=== PATIENT | male | born 1965 ===

== ENCOUNTER 2020-12-29 22:44 | Emergency (ER) | payer OTHER ==
[2020-12-29 22:49] VITALS: BP 134/90; PULSE 90; RESP 19; TEMP 98.3
--- NOTE | 2020-12-30 00:31 | ED ---
Recheck HPI - General Chief Complaint: Recheck/Abnormal Lab/Rx Stated Complaint: Covid Test Time Seen by Provider: 12/29/20 23:28 Source: patient Mode of arrival: ambulatory - History of Present Illness Initial Comments: 55-year-old male patient presents to the emergency department today requesting COVID-19 testing in order to [place] the border [place]. Patient denies any known exposures or any current symptoms. Denies need for any further testing. - Related Data Allergies Allergy/AdvReac Type Severity Reaction Status Date / Time No Known Allergies Allergy Verified 12/29/20 22:49 Review of Systems ROS Statement: Those systems with pertinent positive or pertinent negative responses have been documented in the HPI. ROS Other: All systems not noted in ROS Statement are negative. Past Medical History Past Medical History: No Reported History History of Any Multi-Drug Resistant Organisms: None Reported Past Surgical History: No Surgical Hx Reported Past Psychological History: No Psychological Hx Reported Smoking Status: Never smoker Past Alcohol Use History: None Reported Past Drug Use History: None Reported General Exam General appearance: alert, in no apparent distress Neurological exam: Present: alert, oriented X3, CN II-XII intact Psychiatric exam: Present: normal affect, normal mood Skin exam: Present: warm, intact, normal color. Absent: rash Course Vital Signs 12/29/20 22:47 Temperature 98.3 F Pulse Rate 90 Respiratory 19 Rate Blood Pressure 134/90 O2 Sat by Pulse 99 Oximetry Medical Decision Making - Medical Decision Making 55-year-old male patient presented to the emergency department today for testing for COVID-19 and noted across the border into [place]. He did test negative. Was provided with results. We discharged follow-up with his doctor as needed. My attending is Dr. Deras. - Lab Data Lab Results 12/29/20 Range/Units 23:15 Coronavirus (PCR) Not Detected (Not Detectd) Disposition Clinical Impression: Encounter for laboratory testing for COVID-19 virus Disposition: HOME SELF-CARE Condition: Good Instructions (If sedation given, give patient instructions): Coronavirus Disease 2019 (COVID-19) Is patient prescribed a controlled substance at d/c from ED?: No Referrals: None,Stated [Primary Care Provider] - 1-2 days Time of Disposition: 00:31
== END 2020-12-30 00:49 | disposition home or self-care (01) ==
LOC: EC 22:44
DX: Z20.822 Contact with and (suspected) exposure to COVID-19 (principal)
CPT/HCPCS: 87635; 99282